=== PATIENT | male | born 1965 | race Native Hawaiian/Other Pacific Islander ===

== ENCOUNTER 2017-04-03 22:36 | Emergency (ER) | payer OTHER ==
[~2017-04-03] VITALS: Ht 193 cm; Wt 111.1 kg
[~2017-04-03 22:36] MED LIST: LEVO0.0529 PO
[2017-04-03 23:20] VITALS: BP 151/94; TEMP 98.4
== END 2017-04-03 23:26 | disposition home or self-care (01) ==
LOC: ED 22:36
DX: S50.861A Insect bite (nonvenomous) of right forearm, initial encounter (principal); L02.413 Cutaneous abscess of right upper limb; W57.XXXA Bitten or stung by nonvenomous insect and other nonvenomous arthropods, initial encounter; Y92.098 Other place in other non-institutional residence as the place of occurrence of the external cause
CPT/HCPCS: 36415; 96372; 99282; J0696

== ENCOUNTER 2017-06-29 14:17 | Emergency (ER) | payer OTHER ==
[~2017-06-29] VITALS: Ht 193 cm; Wt 112.5 kg
[2017-06-29 14:23] VITALS: TEMP 98.3
[2017-06-29 15:41] VITALS: BP 146/72
== END 2017-06-29 15:44 | disposition home or self-care (01) ==
LOC: ED 14:17
PROC: 0HQLXZZ Repair Left Lower Leg Skin, External Approach (ICD-10-PCS; principal; 2017-06-29)
DX: S81.852A Open bite, left lower leg, initial encounter (principal); W54.0XXA Bitten by dog, initial encounter; Y92.89 Other specified places as the place of occurrence of the external cause
CPT/HCPCS: 90471; 90715; 99283

== ENCOUNTER 2017-12-23 12:45 | Emergency (ER) | payer OTHER ==
[~2017-12-23] VITALS: Ht 193 cm; Wt 108.9 kg
[2017-12-23 13:46] VITALS: BP 132/84; TEMP 98.6
== END 2017-12-23 13:47 | disposition home or self-care (01) ==
LOC: ED 12:45
DX: L02.414 Cutaneous abscess of left upper limb (principal)
CPT/HCPCS: 96372; 99283; J0696; J1885

== ENCOUNTER 2018-10-18 09:30 | Outpatient (CLI) | payer OTHER | END 2018-10-18 20:29 | disposition home or self-care (01) | LOC: RAD 09:30 | DX: M54.5 Low back pain (principal); M25.552 Pain in left hip ==